=== PATIENT | female | born 1955 | race Caucasian/White ===

== ENCOUNTER → 2017-05-10 | Outpatient (CLI) | payer MEDICARE, OTHER ==
[~2017-05-10] MED LIST: ALPRAZOLAM0.5 MG PO; AZITHROMYCIN250 MG PO; BENZONATATE100 MG PO; IMIPRAMINE50 MG PO; LORTAB 5/500 501 TAB PO; MIRAPEX1 MG PO; PREDNICOT20 MG PO; PROMETHAZINE5 ML/UDC PO; PROTONIX 40MG T40 MG PO; SKELAXIN800 MG PO; SYMBICORT1 AE1 IH; ZITHROMAX Z-PA250 M1 PO
[2017-05-10 15:18] LABS: HEMOGLOBIN 13.6 g/dL (12.2-16.2); LYMPH # 0.7 K/mm3 (0.7-4.5); LYMPH % 13.2 % (10-50.0)
[2017-05-10 16:53] LABS: BUN 11 mg/dL (7-18)
[2017-05-10 16:58] LABS: GFR (ESTIMATED) 63 ML/MIN (59-)
== END ==
LOC: LAB 14:31
PROVIDERS: Family Medicine
DX: F41.8 Other specified anxiety disorders (principal); K21.0 Gastro-esophageal reflux disease with esophagitis; J44.9 Chronic obstructive pulmonary disease, unspecified; E55.9 Vitamin D deficiency, unspecified

== ENCOUNTER → 2017-06-01 | Outpatient (CLI) | payer MEDICARE, OTHER ==
--- NOTE | 2017-06-07 12:20 | RADIOLOGY REPORT PS360 ---
STEROTATIC BX WITH CLIP RT- 2 SITES BIOPSIED UPPER-OUTER QUADRANT SPECIMEN RADIOGRAPH DIAGNOSTIC RIGHT MAMMOGRAM. POSTBIOPSY. Limited focused H&P: HISTORY: 2 areas adjacent Breast calcifications upper-outer quadrant right breast Limited physical exam performed by Dr. John. No definite palpable features of breast Lungs: Clear.Heart: Regular rate and rhythm.. Mental status: Within normal limits. TWO STEREOTACTIC BIOPSIES w/ clip placement at. 2 sites: SITE A. Micro-Calcifications -this is the most posterior to the calcifications in upper-outer quadrant The patient was given 1 mg of Xanax, Lortab 5 mg, and analgesia and minor sedation. The patient was placed on the stereotactic table and the abnormality was localized in the most appropriate projection. The breast was prepped in the routine manner, with sterile prep and the overlying skin anesthetized. A 2-3 mm mm skin incision was performed and the 9 gauge Revolution Prepus vacuum-assisted core biopsy needle was advanced to the region of the calcification. Pre- and post fire images were obtained. After adequate positioning relative to the calcifications was ensured, multiple biopsies were obtained in the region of the calcifications specifically.The core biopsies obtained were sent for specimen mammography. After the calcifications were indeed identified on the specimen mammogram, small MicroMark or placed and we moved onto site B SITE B. Micro- Calcifications This is the second nearby more anterior groupings of calcifications... The calcifications at site B were identified on the stereotactic unit and corticated assigned. . Following local skin anesthesia a small 2 mm skin incision, the 9 gauge source needle was advanced to this area. Position was confirmed on pre and post fire images. Circumferential biopsies here was performed.. Imaging after the biopsy as well as the specimen radiograph confirms of the calcifications were removed. Small second metallic marker placed at this site The patient tolerated the procedure well without complications... Routine follow-up phone call to patient is to be performed as well. A tiny titanium nonferromagnetic MicroMark was positioned through the mammotome needle and both of the biopsy sites.. IMPRESSION: 1. Successful stereotactic vacuum-assisted core biopsy of the2 nearby areas of breast calcifications , both at upper-outer quadrant right breast. 2. Successful placement of a titanium metal MicroMark. At both biopsy sites. 3. No noted complications. ====== ... SPECIMEN RADIOGRAPH: X2 Both facets of mammographically evident calcifications from the prior studies are identified within the specimens, obtained during stereotactic biopsy procedure. Both were considered an adequate. IMPRESSION: Successful removal of described breast calcifications at SITE A & SITE B upper-outer quadrant right breast ======== ... RIGHT BREAST DIAGNOSTIC MAMMOGRAM:-Post biopsy Postbiopsy changes with 2 small metallic MicroMark clip at the biopsy sites... Is evidence of soft tissue changes in the region of the biopsy, evident.. IMPRESSION:--------- 1. Adequate placement of the MicroMark clip postbiopsy at both biopsy SITES A & B. Calcifications of concern were removed and both sites associated. Postbiopsy changes, 2 areas upper outer quadrant right breast. ======== PATHOLOGY REPORT*-both biopsied sites, POSITIVE for malignancy-*see pathology report*: SITE A.: High-grade intraductal, comedocarcinoma with calcifications. Estrogen & progesterone receptors negative SITE B:. Infiltrating moderately differentiated ductal adenocarcinoma with calcifications. Focal high grade intraductal carcinoma also present.. Foci of invasive tumor. Triple negative
== END ==
LOC: RAD 11:50
PROC: 0H9T3ZX Drainage of Right Breast, Percutaneous Approach, Diagnostic (ICD-10-PCS; principal; 2017-06-01)
DX: R92.8 Other abnormal and inconclusive findings on diagnostic imaging of breast (principal)
CPT/HCPCS: G0206-RT